=== PATIENT | female | born 1930 | race Caucasian/White ===

== ENCOUNTER 2016-10-19 08:16 | Inpatient (IN) | payer OTHER ==
--- NOTE | 2016-10-19 08:25 | EDPRACDOC ---
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 Mode Of Arrival: Ambulance Home Medications: Home Medications Acetaminophen [Mapap] 1,000 mg PO Q6H PRN 10/19/16 Acetaminophen [Tylenol] 650 mg PO Q6H PRN 10/19/16 Albuterol/Ipratropium Neb [Duoneb] 3 ml NEB Q6H PRN 10/19/16 Guaifenesin [Robitussin] 10 mg PO Q4H PRN 10/19/16 Lisinopril 5 mg PO DAILY 10/19/16 Loperamide HCl [Imodium A-D] 2 tab PO Q3H PRN 10/19/16 Lorazepam 0.25 mg PO .2XWEEK 10/19/16 Metoprolol Tartrate 12.5 mg PO BID 10/19/16 Polyethylene Glycol 3350 [Miralax] 17 gm PO Q48H 10/19/16 Quetiapine Fumarate [Seroquel] 25 mg PO QHS 10/19/16 Allergies/Adverse Reactions: Allergies Allergy/AdvReac Type Severity Reaction Status Date / Time No Known Allergies Allergy Verified 11/02/15 11:38 - History of Present 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 H/O DEMENTIA. FALL ABOUT 0300. AMS THIS AM. ED Past Medical History - History Reviewed Yes Nurses notes reviewed and agree except as marked - Patient Medical History Cardiac History: Reports: Hypertension GI/ History: Reports: Gastroesophageal Reflux Musculoskeletal History: Reports: Arthritis Psychological History: Reports: Anxiety Systemic History: Reports: Diabetes (Diet-controlled) Surgical History: Reports: Cholecystectomy - Family Medical History Reports: Diabetes (MOTHER) - Social Medical History Smoking Status: Never smoker EDM Review of Systems - Review of Systems ROS Unobtainable: Yes Review of systems cannot be obtained due to the patient's medical condition - Physical Exam Constitutional: Other (SOMNOLENT) Last recorded Vital Signs: Oxygen Pulse Oxygen Saturation O2 Device Oxygen Flow Rate Fraction of Inspired Oxygen ( FIO2) - HEENT Head: Normal Eye Exam: Normal Oropharynx: Normal Nose: No Symptoms Reported Neck: Normal - Respiratory/Cardiovascular Respiratory: Normal - CTA Cardiovascular: Normal - GI Tenderness: Non tender - Musculoskeletal Back: Normal Extremities: negative: Cyanosis, Edema - Integumentary Skin: Warm, Dry Lymphatics: Normal - Neurologic Memory Impaired: Unable to Test Motor Function: Unable to Test Cranial Nerve: Unable to Test Cerebellar: Unable to Test - Results 10/19/16 08:51 10/19/16 08:51 - EKG EKG #1 EKG Time: 08:33 -: Yes EKG interpreted by me Rate: bpm: 94 [place]: Normal Rhythm: NSR Block: None Hypertrophy: None ST: Normal Comments: NORMAL EKG Comparison: 10/25/07 - Departure Yes I personally saw and evaluated the patient. Disposition: Admit IP To This Hospital Condition: Stable Final Diagnosis: Acute metabolic encephalopathy, Hyperglycemia, Dehydration UTI (urinary tract infection) Qualifiers: Urinary tract infection type: acute cystitis Hematuria presence: with hematuria Qualified Code(s): N30.01 - Acute cystitis with hematuria Referrals: None,No Provider [Primary Care Provider] - One Week Prescriptions: No Action Loperamide HCl [Imodium A-D] 2 tab PO Q3H PRN PRN Reason: Diarrhea Albuterol/Ipratropium Neb [Duoneb] 3 ml NEB Q6H PRN PRN Reason: Shortness Of Breath Guaifenesin [Robitussin] 10 mg PO Q4H PRN PRN Reason: Cough Acetaminophen [Tylenol] 650 mg PO Q6H PRN PRN Reason: PAIN OR FEVER Quetiapine Fumarate [Seroquel] 25 mg PO QHS Polyethylene Glycol 3350 [Miralax] 17 gm PO Q48H Metoprolol Tartrate 12.5 mg PO BID Lorazepam 0.25 mg PO .2XWEEK Lisinopril 5 mg PO DAILY Acetaminophen [Mapap] 1,000 mg PO Q6H PRN PRN Reason: PAIN OR FEVER Decision to Admit Time: 09:44 Decision to admit date: 10/19/16 Decision to admit: from ED - Physician Consulted Hospitalist Time Called: :44 Provider Called: Hernesto Garcia Time Fiberglass Finisher Returned Call: 09:44
[2016-10-19 08:45] LABS: LEUKOCYTES/URINE TRACE (NEGATIVE); NITRITE/URINE NEG (NEGATIVE); URINE OCCULT BLOOD 1+ (NEG/TRACE); WBC/URINE TNTC (0-5)
[2016-10-19] MEDS ORDERED: REGULAR INSULIN 100 UNITS/ML - 3 ML VIAL SQ ONE (08:45)
[2016-10-19 08:59] LABS: AUTOMATED BASOPHIL 0.4 % (0-2); AUTOMATED EOSINOPHIL 0.3 % (0-5); AUTOMATED LYMPH 13.3 % (17-44); AUTOMATED MONOCYTE 4.7 % (3-10); AUTOMATED NEUTROPHIL 81.3 % (45-76); MPV 11.3 fL (7.4-10.4)
[2016-10-19 09:00] LABS: VENOUS BEb 2.6 (+/- 2); VENOUS TCO2 31.4 MMOL/L (23-27)
[2016-10-19 09:12] LABS: PARTIAL THROMB. TIME 24.9 SEC (22-35)
[2016-10-19 09:15] LABS: BLOOD UREA NITROGEN 49 MG/DL (7-17); CALCIUM 9.7 MG/DL (8.4-10.2); CALCULATED OSMOLALITY 331 MOs/Kg (270-290); CHLORIDE 114 mEq/L (98-107); SODIUM LEVEL 154 mEq/L (137-146); TOTAL PROTEIN 7.8 G/DL (6.3-8.2)
--- NOTE | 2016-10-19 09:15 | DIRPT ---
ADDENDUM REPORT: 10/19/2016 09:55 ADDENDUM: Due to some sort of error, head CT report was attached to this exam. This chest radiograph demonstrates no acute cardiopulmonary abnormality. No pneumothorax or pleural effusion is noted. Cardiomediastinal silhouette is within normal limits. Severe narrowing of left subacromial space is noted suggesting rotator cuff injury. Electronically Signed By: Flaco Purcell Jr, M.D. On: 10/19/2016 09:55 CLINICAL DATA: Altered mental status after fall. EXAM: CT HEAD WITHOUT CONTRAST TECHNIQUE: Contiguous axial images were obtained from the base of the skull through the vertex without intravenous contrast. COMPARISON: CT scan of November 02, 2015. FINDINGS: Bony calvarium appears intact. Fluid is noted in the mastoid air cells bilaterally. Mild diffuse cortical atrophy is noted. Mild chronic ischemic white matter disease is noted. 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 No mass effect or midline shift is noted. Ventricular size is within normal limits. There is no evidence of mass lesion, hemorrhage or acute infarction. IMPRESSION: Mild diffuse cortical atrophy. Mild chronic ischemic white matter disease. No acute intracranial abnormality seen. Electronically Signed: By: Flaco Purcell Jr, M.D. On: 10/19/2016 09:12
[2016-10-19 09:19] LABS: GLUCOSE 518 mg/dL (70-99)
[2016-10-19] MEDS ORDERED: NS 1,000 ML IV ONE ×2 (09:42→10:27)
[2016-10-19] MEDS ORDERED: CEFTRIAXONE 1 GM in D5W 100 ML IV ONE (09:43)
[2016-10-19] MEDS ORDERED: BENZONATATE 100 MG PERLES PO PRN (10:27)
[2016-10-19] MEDS ORDERED: ACETAMINOPHEN 650 MG SUPP PR PRN (10:27)
[2016-10-19] MEDS ORDERED: GLUCAGON 1 MG VIAL SQ PRN (10:27)
[2016-10-19] MEDS ORDERED: METOCLOPRAMIDE 10 MG/2 ML VIAL IV PRN (10:27)
[2016-10-19] MEDS ORDERED: DEXTROSE 25 GM/50 ML PFS IV PRN (10:27)
[2016-10-19] MEDS ORDERED: SODIUM CHLORIDE 0.9% 3 ML FLUSH FLUSH PRN (10:27)
[2016-10-19] MEDS ORDERED: ACETAMINOPHEN 325 MG/TAB TABLET PO PRN (10:27)
[2016-10-19] MEDS ORDERED: SIMETHICONE 80 MG TAB PO PRN (10:27)
[2016-10-19] MEDS ORDERED: GLUCOSE (ORAL GEL) 15 GM TUBE PO PRN (10:27)
[2016-10-19] MEDS ORDERED: DOCUSATE-SENNA CONCENTRATE TAB PO PRN (10:27)
[2016-10-19] MEDS ORDERED: TEMAZEPAM 15 MG CAP PO PRN (10:27)
[2016-10-19] MEDS ORDERED: Albuterol/Ipratropium Neb 3 ML NEB NEB PRN (10:32)
[2016-10-19] MEDS ORDERED: GUAIFENESIN 200 MG/10 ML UDC PO PRN (10:32)
--- NOTE | 2016-10-19 10:36 | HISTPHYS ---
- Chief Complaint INCREASED CONFUSION - History of Present Illness Patricia Rodriguez is an elderly, debilitated woman who resides at [facility], who fell on her way to the bathroom at 3:00 am today. She is less alert and responsive than usual, more confused. She has some baseline dementia, but is usually alert and able to converse. Her caretakers report that she was "not acting right" and seemed more confused and lethargic than usual. She was sent to the ED for evaluation. She is noted to have an acute kidney injury, dehydration and a urinary tract infection, and will be admitted for further evaluation and management. - Medical History Cardiac History: Reports: Hypertension Respiratory History: Reports: No Significant History GI/ History: Reports: Gastroesophageal Reflux Musculoskeletal History: Reports: Arthritis Systemic History: Reports: Diabetes (Diet-controlled) Neurological History: Reports: Dementia Psychological History: Reports: Anxiety - Surgical History Reports: Cholecystectomy - Medictions/Allergies Allergies No Known Allergies Allergy (Verified 11/02/15 11:38) Current Medication List: Reviewed Home Medications Acetaminophen [Mapap] 1,000 mg PO Q6H PRN 10/19/16 Acetaminophen [Tylenol] 650 mg PO Q6H PRN 10/19/16 Albuterol/Ipratropium Neb [Duoneb] 3 ml NEB Q6H PRN 10/19/16 Guaifenesin [Robitussin] 10 mg PO Q4H PRN 10/19/16 Lisinopril 5 mg PO DAILY 10/19/16 Loperamide HCl [Imodium A-D] 2 tab PO Q3H PRN 10/19/16 Lorazepam 0.25 mg PO .2XWEEK 10/19/16 Metoprolol Tartrate 12.5 mg PO BID 10/19/16 Polyethylene Glycol 3350 [Miralax] 17 gm PO Q48H 10/19/16 Quetiapine Fumarate [Seroquel] 25 mg PO QHS 10/19/16 - Family History Reports: Diabetes (MOTHER) - Social History Travel Outside of [place] in the Last 3 Months?: No Lives: in Assisted Living Smoking Status: Never smoker Social History: Denies: Alcohol Use, Substance Use Disorder - Review of Systems Yes Review of systems cannot be obtained due to the patient's medical condition (acute illness, patient is non-responsive/non-communicative at this time) - Physical Exam Vital Signs: Initial Vitals Temperature 98.9 F 10/19/16 08:26 Pulse Rate 95 10/19/16 08:26 Respiratory Rate 18 10/19/16 08:26 Blood Pressure 175/73 10/19/16 08:26 Pulse Oxygen Saturation 94 10/19/16 08:26 Constitutional: Alert, Confused, Distress, Other (frail elderly white female, awake but will not converse, slightly resistant to exam, but not combative) - HEENT Head: Normal Eye: Normal (PERRL:EOMI) Oropharynx: Membranes Dry. negative: Drooling, Exudate, Red Tympanic Membrane: Dull ENT EAC: Cerumen Nose: negative: Bleeding, Congestion, Discharge Respiratory: Normal - CTA, Diminished Cardiovascular: Normal (regular rhythm and rate, no murmur) - GI Auscultation: Normal Palpation: Normal (soft, nontender, nondistended, no mass, no scar,). negative : Enlarged liver, Enlarged spleen, Fluid Wave, Mass Tenderness: Non tender Antonio's Sign: Negative Rectal Exam: Deferred - Musculoskeletal Back: Normal Extremities: Pedal Pulse (normal), Radial Pulse (normal), Other (degenerative joint disease). negative: Calf Tenderness, Clubbing, Cyanosis, Edema Spine: non-tender, normal alignment, normal inspection - Integumentary Skin: Warm, Dry Lymphatics: Normal - Neurologic Memory Impaired: Unable to Test Motor Function: Unable to Test Cranial Nerve: Unable to Test Cerebellar: Unable to Test Mood Description: Uncooperative Thought: Other (non-communicative) - Focused CV Perfusion Exam Vital Signs: Last Vital Signs Temp 98.9 F 10/19/16 08:26 Pulse 94 10/19/16 10:00 Resp 18 10/19/16 10:00 BP 171/77 10/19/16 10:00 Pulse Ox 94 10/19/16 10:00 - Lab Results Laboratory Tests 10/19/16 10/19/16 10/19/16 08:31 08:31 08:51 WBC Hgb Hct Plt Count Neut % (Auto) Lymph % (Auto) Young % (Auto) PT INR APTT VBG pH Mixed VBG pCO2 Mixed VBG pO2 Mixed VBG HCO3 Mixed VBG Total CO2 Mixed VBG Base Excess Sodium 154 H Potassium 4.4 Chloride 114 H Carbon Dioxide 27 BUN 49 H Creatinine 1.20 H Estimated GFR (MDRD) 43 L Glucose 518 H* POC Capillary Glucose 451 H Hemoglobin A1c Calculated Osmolality 331 H Calcium 9.7 Total Bilirubin 0.7 AST 16 ALT 23 Alkaline Phosphatase 140 Troponin I < 0.01 [id number] Pept 397 Total Protein 7.8 Albumin 4.0 Urine Color Yellow Urine Clarity Cldy Urine pH 5.0 Ur Specific [place] 1.015 Urine Protein 1+ H Urine Glucose (UA) 2+ H Urine Ketones Neg Urine Occult Blood 1+ H Urine Nitrite Neg Urine Bilirubin Neg Urine Urobilinogen <2.0 Urine RBC 10-20 H Urine WBC Tntc H Urine WBC Clumps Present H Urine Bacteria 1+ H 10/19/16 10/19/16 10/19/16 08:51 08:51 08:51 WBC 10.1 Hgb 14.7 Hct 45.6 Plt Count 156 Neut % (Auto) 81.3 H Lymph % (Auto) 13.3 L Young % (Auto) 4.7 PT 10.7 INR 1.0 APTT 24.9 VBG pH 7.34 Mixed VBG pCO2 55.0 Mixed VBG pO2 < 31.0 Mixed VBG HCO3 29.7 H Mixed VBG Total CO2 31.4 H Mixed VBG Base Excess 2.6 H Sodium Potassium Chloride Carbon Dioxide BUN Creatinine Estimated GFR (MDRD) Glucose POC Capillary Glucose Hemoglobin A1c Calculated Osmolality Calcium Total Bilirubin AST ALT Alkaline Phosphatase Troponin I [id number]-Lrwdvypcnin Pept Total Protein Albumin Urine Color Urine Clarity Urine pH Ur Specific [place] Urine Protein Urine Glucose (UA) Urine Ketones Urine Occult Blood Urine Nitrite Urine Bilirubin Urine Urobilinogen Urine RBC Urine WBC Urine WBC Clumps Urine Bacteria 10/19/16 10/19/16 08:51 11:54 WBC Hgb Hct Plt Count Neut % (Auto) Lymph % (Auto) Young % (Auto) PT INR APTT VBG pH Mixed VBG pCO2 Mixed VBG pO2 Mixed VBG HCO3 Mixed VBG Total CO2 Mixed VBG Base Excess Sodium Potassium Chloride Carbon Dioxide BUN Creatinine Estimated GFR (MDRD) Glucose POC Capillary Glucose Hemoglobin A1c > 14.0 H Calculated Osmolality Calcium Total Bilirubin AST ALT Alkaline Phosphatase Troponin I < 0.01 Wol-N-Sijyvnibpyw Pept Total Protein Albumin Urine Color Urine Clarity Urine pH Ur Specific [place] Urine Protein Urine Glucose (UA) Urine Ketones Urine Occult Blood Urine Nitrite Urine Bilirubin Urine Urobilinogen Urine RBC Urine WBC Urine WBC Clumps Urine Bacteria - Diagnostic Findings CXR: ADDENDUM: Due to some sort of error, head CT report was attached to this exam. This chest radiograph demonstrates no acute cardiopulmonary abnormality. No pneumothorax or pleural effusion is noted. Cardiomediastinal silhouette is within normal limits. Severe narrowing of left subacromial space is noted suggesting rotator cuff injury. Electronically Signed By: Flaco Purcell Jr, M.D. On: 10/19/2016 09:55 CT Head: IMPRESSION: Mild diffuse cortical atrophy. Mild chronic ischemic white matter disease. No acute intracranial abnormality seen. Electronically Signed: By: Flaco Purcell Jr, M.D. On: 10/19/2016 09:12 - Assessment (1) Acute kidney injury N17.9 - ACUTE KIDNEY FAILURE, UNSPECIFIED Acute Present on Admission: Yes Admit, obtain cultures of blood and urine, begin IV antibiotics and aggressive hydration with IV fluids. Patient received 2L of IV fluid in ED, will give 1 more liter bolus, then continue at 125 mL/hr. Follow renal function daily and avoid nephrotoxic medications. (2) Hypernatremia E87.0 - HYPEROSMOLALITY AND HYPERNATREMIA Acute Present on Admission: Yes Hydrate patient initially with isotonic saline, then recheck, and consider more dilute solution if hypernatremia persists (3) Acute metabolic encephalopathy G93.41 - METABOLIC ENCEPHALOPATHY Acute Present on Admission: Yes Patient very confused and withdrawn, likely due to acute illness. Will treat underlying illness and follow clinical course. CT of head shows no acute CVA or injury. (4) DM complication NOS type II, uncontrolled E11.8 - TYPE 2 DIABETES MELLITUS WITH UNSPECIFIED COMPLICATIONS; E11.65 - TYPE 2 DIABETES MELLITUS WITH HYPERGLYCEMIA Acute Present on Admission: Yes Qualifiers: Diabetes mellitus fdc insulin use: without intermission coordinator use Qualified Code(s): E11.8 - Type 2 diabetes mellitus with unspecified complications; E11.65 - Type 2 diabetes mellitus with hyperglycemia Begin Lantus 14 units SC q HS, follow CBG QID + PRN and use moderate dose SSI (5) UTI (urinary tract infection) N39.0 - URINARY TRACT INFECTION, SITE NOT SPECIFIED Acute Present on Admission: Yes Qualifiers: Urinary tract infection type: acute cystitis Hematuria presence: with hematuria Qualified Code(s): N30.01 - Acute cystitis with hematuria Culture urine, begin IV Rocephin (6) Dehydration E86.0 - DEHYDRATION Acute Present on Admission: Yes Severe, needs aggressive rehydration, initially with isotonic saline, then recheck, and consider more dilute solution if hypernatremia persists (7) Hyperglycemia R73.9 - HYPERGLYCEMIA, UNSPECIFIED Acute Present on Admission: Yes Due to acute illness and uncontrolled diabetes. Monitor blood sugars prior to each meal and at HS, use sliding scale insulin and small amount of Lantus. (8) Diastolic CHF I50.30 - UNSPECIFIED DIASTOLIC (CONGESTIVE) HEART FAILURE Chronic Present on Admission: Yes Qualifiers: Congestive heart failure chronicity: chronic Qualified Code(s): I50.32 - Chronic diastolic (congestive) heart failure Diastolic dysfunction noted on echocardiogram with normal ejection fraction (9) Hypertension I10 - ESSENTIAL (PRIMARY) HYPERTENSION Chronic Present on Admission: Yes Qualifiers: Hypertension type: essential hypertension Qualified Code(s): I10 - Essential (primary) hypertension Monitor BP closely. Continue home medications, except hold BOBBY/ARB and diuretics. May need to add other meds or titrate doses up. - Plan Due to the presence of and/or the risk of deterioration, my attendance to this patient required critical care time, including assessment/reassessment, documentation, ordering and interpreting ancillary studies, discussion with staff and consultants,patient and family, and excludes time spent on separately billable procedures. In summary, this patient is acutely and critically ill. The patient requires treatment of vital organ failure and measures to prevent further life-threatening deterioration of condition. She has requested to be a DNR and has a pre-existing form on her chart, which will be honored. Case Care Discussed with: Nursing Staff Total Time: 65 min Critical Care: Yes Couseling Time (>50% in counseling/coordination): No Code: 291
[2016-10-19] MEDS: NS 1,000 ML IV ONE ×2 (11:08→12:05)
[2016-10-19] MEDS ORDERED: hydrALAZINE 20 MG/ML VIAL IV ONE (11:38)
[2016-10-19] MEDS: METOPROLOL TARTRATE 25 MG TAB PO SCH (11:59)
[2016-10-19] MEDS: NS 1,000 ML IV SCH ×2 (12:07→16:06)
[2016-10-19] MEDS: REGULAR INSULIN 100 UNITS/ML - 3 ML VIAL SQ SCH ×3 (13:23→20:51)
[2016-10-19 15:29] LABS: BLOOD UREA NITROGEN 39 MG/DL (7-17); CALCIUM 8.6 MG/DL (8.4-10.2); CALCULATED OSMOLALITY 309 MOs/Kg (270-290); CHLORIDE 121 mEq/L (98-107); GLUCOSE 112 mg/dL (70-99); SODIUM LEVEL 156 mEq/L (137-146)
[2016-10-19] MEDS ORDERED: CHAPSTICK LIP BALM ONE (15:59)
[2016-10-19] MEDS ORDERED: GLARGINE INSULIN (LANTUS) 100 UNITS/ML PEN SQ SCH ×3 (16:00→21:00)
[2016-10-19] MEDS ORDERED: Vaccine Screening Complete SCH (16:00)
[2016-10-19] MEDS: ENOXAPARIN 30 MG/0.3 ML PFS SQ SCH (17:50)
[2016-10-19] MEDS: SODIUM CHLORIDE 0.9% 3 ML FLUSH FLUSH SCH (17:54)
[2016-10-19] MEDS: QUETIAPINE FUMARATE 25 MG TAB PO SCH (20:08)
[2016-10-19] MEDS ORDERED: METOPROLOL TARTRATE 25 MG TAB PO SCH (21:00)
[2016-10-20] MEDS: NS 1,000 ML IV SCH ×2 (01:13→11:00)
[2016-10-20] MEDS: SODIUM CHLORIDE 0.9% 3 ML FLUSH FLUSH SCH ×2 (06:24→18:44)
[2016-10-20] MEDS: REGULAR INSULIN 100 UNITS/ML - 3 ML VIAL SQ SCH ×4 (06:24→21:27)
[2016-10-20 07:17] LABS: AUTOMATED BASOPHIL 0.4 % (0-2); AUTOMATED EOSINOPHIL 1.3 % (0-5); AUTOMATED LYMPH 23.5 % (17-44); AUTOMATED MONOCYTE 6.6 % (3-10); AUTOMATED NEUTROPHIL 68.2 % (45-76); MPV 11.7 fL (7.4-10.4)
[2016-10-20 07:39] LABS: BLOOD UREA NITROGEN 29 MG/DL (7-17); CALCIUM 8.1 MG/DL (8.4-10.2); CALCULATED OSMOLALITY 303 MOs/Kg (270-290); CHLORIDE 123 mEq/L (98-107); GLUCOSE 101 mg/dL (70-99); SODIUM LEVEL 155 mEq/L (137-146)
[2016-10-20] MEDS ORDERED: PNEUMOCOCCAL 0.5 ML VIAL IM ONE (08:00)
[2016-10-20] MEDS ORDERED: LISINOPRIL 5 MG TAB PO SCH (09:00)
[2016-10-20] MEDS: METOPROLOL TARTRATE 25 MG TAB PO SCH ×2 (09:29→21:28)
[2016-10-20] MEDS: PEG-ELECTROLYTE 17 GM PACK PO SCH (09:38)
[2016-10-20] MEDS ORDERED: CEFTRIAXONE 1 GM in D5W 100 ML IV SCH (10:00)
[2016-10-20] MEDS: 1/2NS 1,000 ML IV SCH ×2 (11:47→23:02)
--- NOTE | 2016-10-20 14:50 | GENMEDPROG ---
Subjective Note: confused and agitated. Pulling at all lines and monitors. Son at bedside attempting redirection. patient now speaking words but they are not making any sense. Notes Reviewed: Yes: Events from last night noted and discussed with Clinical Staff Current Medication List: Reviewed Currently: Reports: Other (pt unable to give any history). Denies: Nausea and Vomiting, Abdominal Pain DVT Prophylaxis: Yes - Physical Examination Vital Signs and I&O: Last Vital Signs Temp 99.2 F 10/20/16 14:10 Pulse 87 10/20/16 14:10 Resp 20 10/20/16 14:10 BP 128/50 L 10/20/16 14:10 Pulse Ox 95 10/20/16 14:10 Oxygen Pulse Oxygen Saturation 95 O2 Device Room Air Oxygen Flow Rate Fraction of Inspired Oxygen ( FIO2) Intake & Output 10/17/16 10/18/16 10/19/16 10/20/16 23:59 23:59 23:59 23:59 Intake Total 3374 988 Balance 3374 988 Patient's weight 47.491 kg 47.945 kg General: Alert. negative: Oriented x3, Cooperative, Well appearing, Well nourished, Other (agitated) HEENT: Normal (Normocephalic, atraumatic;EOMI.Sclera white, Nares patent, without discharge or bleeding. No oropharyngeal lesions or erythema. Mucous membranes are dry.) Neck: Non-tender, Full range of motion, Normal Trachea alignment, Normal inspection (No cervical lymphadenopathy. No supraclavicular lymphadenopathy.), No Masses palpable, Supple Lymphatics: Normal Respiratory: Normal - CTA, Diminished Cardiovascular: Regular rate and rhythm (No bradycardia or tachycardia), Normal S1, No Gallops,Rubs/Murmurs, Normal S2, Good Pedal Pulses (DP pulses 2+ bilaterally) GI: Normal bowel sounds (normal active sounds), Soft (non-distended), Non tender , No hepatospenomegaly, No masses Extremities/Musculoskeletal: Normal pulses Skin: Warm,Dry and Intact, No rashes, No significant lesion Psych/Mental Status: Agitated, Confused Lab/DI/Studies Reviewed: Abnormal Lab Results 10/19/16 10/19/16 10/19/16 14:35 16:18 16:19 RBC Hgb MCHC Plt Count MPV Sodium 156 H Potassium 3.3 L Chloride 121 H BUN 39 H Estimated GFR (MDRD) 53 L Glucose 112 H POC Capillary Glucose 47 L* 48 L* Calculated Osmolality 309 H Calcium 10/19/16 10/19/16 10/19/16 16:35 17:00 20:39 RBC Hgb MCHC Plt Count MPV Sodium Potassium Chloride BUN Estimated GFR (MDRD) Glucose 50 L POC Capillary Glucose 65 L 272 H Calculated Osmolality Calcium 10/20/16 10/20/16 10/20/16 06:11 06:11 10:48 RBC 4.04 L Hgb 11.5 L D MCHC 32.0 L Plt Count 127 L MPV 11.7 H Sodium 155 H Potassium Chloride 123 H BUN 29 H Estimated GFR (MDRD) Glucose 101 H POC Capillary Glucose 251 H Calculated Osmolality 303 H Calcium 8.1 L - Assessment (1) Hypernatremia Acute E87.0 - HYPEROSMOLALITY AND HYPERNATREMIA Comment/Plan: Hypernatremia is persistent. Will change solution to half-normal saline. (2) Acute metabolic encephalopathy Acute G93.41 - METABOLIC ENCEPHALOPATHY Comment/Plan: Patient beginning to wake up some she is saying words but they do not make any sense. Continue to treat underlying cause. (3) Diastolic CHF Chronic I50.30 - UNSPECIFIED DIASTOLIC (CONGESTIVE) HEART FAILURE Qualifiers: Congestive heart failure chronicity: chronic Qualified Code(s): I50.32 - Chronic diastolic (congestive) heart failure Comment/Plan: Diastolic dysfunction noted on echocardiogram with normal ejection fraction (4) Dehydration Acute E86.0 - DEHYDRATION Comment/Plan: Continue rehydration gently with half-normal saline at 100 milliliters/hour (5) Hyperglycemia Acute R73.9 - HYPERGLYCEMIA, UNSPECIFIED Comment/Plan: Glucoses improving slightly with hydration. Patient did have several low blood glucoses after receiving higher doses of insulin. Will cut back to low-dose sliding-scale coverage. (6) DM complication NOS type II, uncontrolled Acute E11.8 - TYPE 2 DIABETES MELLITUS WITH UNSPECIFIED COMPLICATIONS; E11.65 - TYPE 2 DIABETES MELLITUS WITH HYPERGLYCEMIA Qualifiers: Diabetes mellitus rat exterminator insulin use: without rat exterminator use Qualified Code(s): E11.8 - Type 2 diabetes mellitus with unspecified complications; E11.65 - Type 2 diabetes mellitus with hyperglycemia Comment/Plan: Discontinue Lantus 14 units at HS continue capillary blood glucoses Q twice daily and cover with low-dose sliding scale insulin. (7) Hypertension Chronic I10 - ESSENTIAL (PRIMARY) HYPERTENSION Qualifiers: Hypertension type: essential hypertension Qualified Code(s): I10 - Essential (primary) hypertension Comment/Plan: Monitor BP closely. Continue home medications, except hold BOBBY/ ARB and diuretics. May need to add other meds or titrate doses up. (8) Acute kidney injury Resolved N17.9 - ACUTE KIDNEY FAILURE, UNSPECIFIED Comment/Plan: Renal function back to normal. (9) UTI (urinary tract infection) Ruled-out N39.0 - URINARY TRACT INFECTION, SITE NOT SPECIFIED Qualifiers: Urinary tract infection type: acute cystitis Hematuria presence: with hematuria Qualified Code(s): N30.01 - Acute cystitis with hematuria Comment/Plan: Urine culture negative. Continue to monitor closely. - Plan Continue supportive care and treat underlying hypernatremia. Disposition Plan: [facility]. Case Care Discussed with: Patient, Family, Nursing Staff, Physical Therapy, Resource Management, Warrant Clerk Education/Counseling Given To: Patient, Family Member Education/Counseling Given Regarding: Diagnosis, Treatment, Prognosis, Disposition Plan Total Time: 45 minutes. Critical Care: No Couseling Time (>50% in counseling/coordination): No
[2016-10-20] MEDS: ENOXAPARIN 30 MG/0.3 ML PFS SQ SCH (18:44)
[2016-10-20] MEDS: QUETIAPINE FUMARATE 25 MG TAB PO SCH (21:28)
[2016-10-21] MEDS: SODIUM CHLORIDE 0.9% 3 ML FLUSH FLUSH SCH ×2 (04:52→16:58)
[2016-10-21] MEDS: REGULAR INSULIN 100 UNITS/ML - 3 ML VIAL SQ SCH ×4 (06:22→21:54)
[2016-10-21 08:07] LABS: AUTOMATED BASOPHIL 0.4 % (0-2); AUTOMATED EOSINOPHIL 1.3 % (0-5); AUTOMATED LYMPH 31.7 % (17-44); AUTOMATED MONOCYTE 6.1 % (3-10); AUTOMATED NEUTROPHIL 60.5 % (45-76); MPV 11.9 fL (7.4-10.4)
[2016-10-21 08:17] LABS: BLOOD UREA NITROGEN 19 MG/DL (7-17); CALCIUM 7.3 MG/DL (8.4-10.2); CALCULATED OSMOLALITY 279 MOs/Kg (270-290); CHLORIDE 114 mEq/L (98-107); GLUCOSE 135 mg/dL (70-99); SODIUM LEVEL 143 mEq/L (137-146)
[2016-10-21 09:08] LABS: ABG Draw Site Left Radial; ALLEN'S TEST PASS; BEb -2.9 (+/- 2); TCO2 21.9 MMOL/L (23-27)
--- NOTE | 2016-10-21 09:42 | DIRPT ---
CLINICAL DATA: 86-year-old who presented to the emergency department 2 days ago with acute mental status changes after a fall. Acute onset of shortness of breath and hypoxia. EXAM: PORTABLE CHEST 1 VIEW COMPARISON: 10/19/2016, 10/23/2015. FINDINGS: Suboptimal inspiration accounts for crowded bronchovascular markings diffusely and atelectasis in the bases, and accentuates the cardiac silhouette. Taking this into account, cardiac silhouette normal in size. Thoracic aorta atherosclerotic. Hilar and mediastinal contours otherwise unremarkable. Biapical pleuroparenchymal scarring with calcification, unchanged. Developing mild pulmonary venous hypertension, new since the examination 2 days ago, without overt edema. Lungs otherwise clear. No confluent airspace consolidation. No visible pleural effusions. Severe degenerative changes involving both shoulder joints as noted previously. IMPRESSION: 1. Suboptimal inspiration accounts for mild bibasilar atelectasis. 2. Developing pulmonary venous hypertension without overt edema currently. Query incipient fluid overload. 3. No acute cardiopulmonary disease otherwise. Electronically Signed By: Levi Bell M.D. On: 10/21/2016 09:39
[2016-10-21] MEDS: METOPROLOL TARTRATE 25 MG TAB PO SCH ×3 (11:00→21:56)
[2016-10-21] MEDS: 1/2NS 1,000 ML IV SCH ×2 (11:04→15:14)
[2016-10-21] MEDS: PIPERACILLIN AND TAZOBACTAM 3.375 GM in D5W 100 ML IV SCH ×3 (11:04→21:56)
[2016-10-21 12:19] LABS: LEUKOCYTES/URINE 2+ (NEGATIVE); NITRITE/URINE NEG (NEGATIVE); URINE OCCULT BLOOD 1+ (NEG/TRACE); WBC/URINE TNTC (0-5)
[2016-10-21] MEDS ORDERED: FUROSEMIDE 40 MG/4 ML VIAL IV ONE (13:20)
--- NOTE | 2016-10-21 16:07 | GENMEDPROG ---
Subjective Note: Patient had fever at approximately 5:00 a.m. this morning was followed by an episode of hypoxemia at approximately 7:30 a.m. this morning. Patient developed wheezing was having difficulty oxygenating she received nebulizer treatment in that improved. Notes Reviewed: Yes: Events from last night noted and discussed with Clinical Staff Current Medication List: Reviewed Currently: Reports: Wheezing, SOB, Other (pt unable to give any history). Denies: Nausea and Vomiting, Abdominal Pain DVT Prophylaxis: Yes - Physical Examination Vital Signs and I&O: Last Vital Signs Temp 97.0 F L 10/21/16 13:27 Pulse 90 10/21/16 13:27 Resp 18 10/21/16 13:27 BP 119/72 10/21/16 13:27 Pulse Ox 92 10/21/16 13:27 Oxygen Pulse Oxygen Saturation 92 O2 Device Room Air Oxygen Flow Rate Fraction of Inspired Oxygen ( FIO2) Intake & Output 10/18/16 10/19/16 10/20/16 10/21/16 23:59 23:59 23:59 23:59 Intake Total 3374 2430 1852 Balance 3374 2430 1852 Patient's weight 47.491 kg 47.945 kg 48.897 kg General: Alert. negative: Oriented x3, Cooperative, Well appearing, Well nourished, Other (agitated) HEENT: Normal (Normocephalic, atraumatic;EOMI.Sclera white, Nares patent, without discharge or bleeding. No oropharyngeal lesions or erythema. Mucous membranes are dry.) Neck: Non-tender, Full range of motion, Normal Trachea alignment, Normal inspection (No cervical lymphadenopathy. No supraclavicular lymphadenopathy.), No Masses palpable, Supple Lymphatics: Normal Respiratory: Normal - CTA, Diminished Cardiovascular: Regular rate and rhythm (No bradycardia or tachycardia), Normal S1, No Gallops,Rubs/Murmurs, Normal S2, Good Pedal Pulses (DP pulses 2+ bilaterally) GI: Normal bowel sounds (normal active sounds), Soft (non-distended), Non tender , No hepatospenomegaly, No masses Extremities/Musculoskeletal: Normal pulses, Edema Skin: Warm,Dry and Intact, No rashes, No significant lesion Neurological: Strength at 5/5 X4 ext (Motor 5/5 throughout.), Normal tone, Cranial nerves 3-12 NL ( 2-12 grossly intact.) Psych/Mental Status: Agitated, Confused Lab/DI/Studies Reviewed: EXAM: PORTABLE CHEST 1 VIEW COMPARISON: 10/19/2016, 10/23/2015. FINDINGS: Suboptimal inspiration accounts for crowded bronchovascular markings diffusely and atelectasis in the bases, and accentuates the cardiac silhouette. Taking this into account, cardiac silhouette normal in size. Thoracic aorta atherosclerotic. Hilar and mediastinal contours otherwise unremarkable. Biapical pleuroparenchymal scarring with calcification, unchanged. Developing mild pulmonary venous hypertension, new since the examination 2 days ago, without overt edema. Lungs otherwise clear. No confluent airspace consolidation. No visible pleural effusions. Severe degenerative changes involving both shoulder joints as noted previously. IMPRESSION: 1. Suboptimal inspiration accounts for mild bibasilar atelectasis. 2. Developing pulmonary venous hypertension without overt edema currently. Query incipient fluid overload. 3. No acute cardiopulmonary disease otherwise. Electronically Signed By: Levi Bell M.D. On: 10/21/2016 09:39 Abnormal Lab Results 10/20/16 10/20/16 10/21/16 16:08 21:18 05:42 RBC Hgb Hct MCHC Plt Count MPV pCO2 pO2 HCO3 Total CO2 Base Excess Potassium Chloride BUN Glucose POC Capillary Glucose 102 H 175 H 139 H Calcium Magnesium Urine Protein Urine Ketones Urine Occult Blood Ur Leukocyte Esterase Urine RBC Urine WBC Urine WBC Clumps Urine Yeast 10/21/16 10/21/16 10/21/16 06:54 06:54 09:03 RBC 3.97 L Hgb 11.4 L Hct 34.9 L MCHC 32.5 L Plt Count 99 L MPV 11.9 H pCO2 33.0 L pO2 62.0 L HCO3 20.9 L Total CO2 21.9 L Base Excess -2.9 L Potassium 3.4 L Chloride 114 H BUN 19 H Glucose 135 H POC Capillary Glucose Calcium 7.3 L Magnesium 1.40 L Urine Protein Urine Ketones Urine Occult Blood Ur Leukocyte Esterase Urine RBC Urine WBC Urine WBC Clumps Urine Yeast 10/21/16 10/21/16 11:36 12:00 RBC Hgb Hct MCHC Plt Count MPV pCO2 pO2 HCO3 Total CO2 Base Excess Potassium Chloride BUN Glucose POC Capillary Glucose 172 H Calcium Magnesium Urine Protein 1+ H Urine Ketones 1+ H Urine Occult Blood 1+ H Ur Leukocyte Esterase 2+ H Urine RBC 5-10 H Urine WBC Tntc H Urine WBC Clumps Present H Urine Yeast Mod H - Assessment (1) Hypernatremia Acute E87.0 - HYPEROSMOLALITY AND HYPERNATREMIA Comment/Plan: Sodium down to 143 with change in IV fluids to half-normal saline. (2) Acute metabolic encephalopathy Acute G93.41 - METABOLIC ENCEPHALOPATHY Comment/Plan: Patient remains somewhat confused today will continue to monitor. (3) Diastolic CHF Chronic I50.30 - UNSPECIFIED DIASTOLIC (CONGESTIVE) HEART FAILURE Qualifiers: Congestive heart failure chronicity: chronic Qualified Code(s): I50.32 - Chronic diastolic (congestive) heart failure Comment/Plan: Diastolic dysfunction noted on echocardiogram with normal ejection fraction (4) Dehydration Acute E86.0 - DEHYDRATION Comment/Plan: Continue rehydration gently with half-normal saline at 100 milliliters/hour (5) Hyperglycemia Acute R73.9 - HYPERGLYCEMIA, UNSPECIFIED Comment/Plan: Glucoses improving slightly with hydration. Patient did have several low blood glucoses after receiving higher doses of insulin. Will cut back to low-dose sliding-scale coverage. (6) DM complication NOS type II, uncontrolled Acute E11.8 - TYPE 2 DIABETES MELLITUS WITH UNSPECIFIED COMPLICATIONS; E11.65 - TYPE 2 DIABETES MELLITUS WITH HYPERGLYCEMIA Qualifiers: Diabetes mellitus watermelon harvesting supervisor insulin use: without watermelon harvesting supervisor use Qualified Code(s): E11.8 - Type 2 diabetes mellitus with unspecified complications; E11.65 - Type 2 diabetes mellitus with hyperglycemia Comment/Plan: Glucoses well controlled and below 200. (7) Hypertension Chronic I10 - ESSENTIAL (PRIMARY) HYPERTENSION Qualifiers: Hypertension type: essential hypertension Qualified Code(s): I10 - Essential (primary) hypertension Comment/Plan: Monitor BP closely. Continue home medications, except hold BOBBY/ ARB and diuretics. May need to add other meds or titrate doses up. (8) Acute kidney injury Resolved N17.9 - ACUTE KIDNEY FAILURE, UNSPECIFIED Comment/Plan: Renal function back to normal. (9) UTI (urinary tract infection) Ruled-out N39.0 - URINARY TRACT INFECTION, SITE NOT SPECIFIED Qualifiers: Urinary tract infection type: acute cystitis Hematuria presence: with hematuria Qualified Code(s): N30.01 - Acute cystitis with hematuria Comment/Plan: Urine culture negative. Continue to monitor closely. In today's events a new culture has been sent peer - Plan Continue supportive care and treat underlying hypernatremia. Disposition Plan: [facility]. Case Care Discussed with: Nursing Staff Total Time: 45 minutes Critical Care: No Couseling Time (>50% in counseling/coordination): No
[2016-10-21] MEDS: ENOXAPARIN 30 MG/0.3 ML PFS SQ SCH (16:59)
[2016-10-21] MEDS: ONDANSETRON HCL 4 MG/2 ML VIAL IV PRN (19:10)
[2016-10-21] MEDS: METOCLOPRAMIDE 10 MG/2 ML VIAL IV PRN (21:52)
[2016-10-21] MEDS: QUETIAPINE FUMARATE 25 MG TAB PO SCH (21:56)
--- NOTE | 2016-10-21 22:37 | DIRPT ---
CLINICAL DATA: 86-year-old female with vomiting EXAM: DG ABDOMEN ACUTE W/ 1V CHEST COMPARISON: Radiograph dated 11/04/2015 FINDINGS: There is no evidence of bowel obstruction. No free air. There is scoliosis with degenerative changes of the spine. No acute fracture. The thoracic aorta is tortuous. There is atherosclerotic calcification of the aorta. Left lung base atelectatic changes/scarring noted. The lungs are otherwise clear. No significant pleural effusion. No pneumothorax. Right apical calcified pleural plaques. The cardiac silhouette is within normal limits. IMPRESSION: No evidence of bowel obstruction. Left lung base atelectatic changes/ scarring. No focal consolidation. Electronically Signed By: Gera Parnell M.D. On: 10/21/2016 22:34
[2016-10-22] MEDS: Albuterol/Ipratropium Neb 3 ML NEB NEB SCH ×4 (03:10→20:21)
[2016-10-22] MEDS: SODIUM CHLORIDE 0.9% 3 ML FLUSH FLUSH SCH ×2 (03:43→17:31)
[2016-10-22] MEDS: METOCLOPRAMIDE 10 MG/2 ML VIAL IV PRN ×2 (03:43→17:27)
[2016-10-22] MEDS: PIPERACILLIN AND TAZOBACTAM 3.375 GM in D5W 100 ML IV SCH ×4 (03:43→21:33)
[2016-10-22 04:47] VITALS: BMI 22.1
[2016-10-22] MEDS: REGULAR INSULIN 100 UNITS/ML - 3 ML VIAL SQ SCH ×4 (06:23→20:51)
[2016-10-22 07:11] LABS: AUTOMATED LYMPH 9.5 % (17-44); AUTOMATED MONOCYTE 5.3 % (3-10); AUTOMATED NEUTROPHIL 85.2 % (45-76); MPV 12.6 fL (7.4-10.4)
[2016-10-22 07:23] LABS: BLOOD UREA NITROGEN 26 MG/DL (7-17); CALCIUM 7.3 MG/DL (8.4-10.2); CALCULATED OSMOLALITY 277 MOs/Kg (270-290); CHLORIDE 102 mEq/L (98-107); GLUCOSE 271 mg/dL (70-99); SODIUM LEVEL 136 mEq/L (137-146)
[2016-10-22] MEDS ORDERED: KCL 20 mEq/100 ml Premix Run 20 MEQ/100 ML RTU IV ONE (08:00)
[2016-10-22] MEDS: 1/2NS 1,000 ML IV SCH ×2 (09:36→13:20)
[2016-10-22] MEDS: PEG-ELECTROLYTE 17 GM PACK PO SCH (09:38)
[2016-10-22] MEDS: MAGNESIUM OXIDE 400 MG TAB PO SCH ×3 (09:39→17:31)
[2016-10-22] MEDS: POTASSIUM CHLORIDE 20 MEQ TAB PO SCH ×3 (09:39→17:31)
[2016-10-22] MEDS: METOPROLOL TARTRATE 25 MG TAB PO SCH ×2 (09:41→20:27)
[2016-10-22] MEDS: Magnesium Sulfate 2 gm/D5W 2 GM/50 ML RTU IV SCH ×2 (13:35→17:28)
--- NOTE | 2016-10-22 17:28 | GENMEDPROG ---
Subjective Note: Patient minimally interactive today. She lives in the Alzheimer's unit at the assisted living facility. Notes Reviewed: Yes: Events from last night noted and discussed with Clinical Staff Current Medication List: Reviewed Currently: Reports: Wheezing, SOB, Other (pt unable to give any history). Denies: Nausea and Vomiting, Abdominal Pain DVT Prophylaxis: Yes - Physical Examination Vital Signs and I&O: Last Vital Signs Temp 98.1 F 10/22/16 13:55 Pulse 76 10/22/16 13:55 Resp 18 10/22/16 13:55 BP 116/54 L 10/22/16 13:55 Pulse Ox 93 10/22/16 13:55 Oxygen Pulse Oxygen Saturation 93 O2 Device Room Air Oxygen Flow Rate 3 Fraction of Inspired Oxygen ( FIO2) Intake & Output 10/19/16 10/20/16 10/21/16 10/22/16 23:59 23:59 23:59 23:59 Intake Total 3374 2430 2729 1351 Balance 3374 2430 2729 1351 Patient's weight 47.491 kg 47.945 kg 48.897 kg 49.623 kg General: Alert. negative: Oriented x3, Cooperative, Well appearing, Well nourished, Other (agitated) HEENT: Normal (Normocephalic, atraumatic;EOMI.Sclera white, Nares patent, without discharge or bleeding. No oropharyngeal lesions or erythema. Mucous membranes are dry.) Neck: Non-tender, Full range of motion, Normal Trachea alignment, Normal inspection (No cervical lymphadenopathy. No supraclavicular lymphadenopathy.), No Masses palpable, Supple Lymphatics: Normal Respiratory: Normal - CTA, Diminished Cardiovascular: Regular rate and rhythm (No bradycardia or tachycardia), Normal S1, No Gallops,Rubs/Murmurs, Normal S2, Good Pedal Pulses (DP pulses 2+ bilaterally) GI: Normal bowel sounds (normal active sounds), Soft (non-distended), Non tender , No hepatospenomegaly, No masses Extremities/Musculoskeletal: Normal pulses, Edema Skin: Warm,Dry and Intact, No rashes, No significant lesion Neurological: Strength at 5/5 X4 ext (Motor 5/5 throughout.), Normal tone, Cranial nerves 3-12 NL ( 2-12 grossly intact.) Psych/Mental Status: Agitated, Confused Lab/DI/Studies Reviewed: Abnormal Lab Results 10/21/16 10/22/16 10/22/16 21:00 05:46 06:25 RBC 4.18 L MCHC 32.8 L Plt Count 95 L MPV 12.6 H Neut % (Auto) 85.2 H Lymph % (Auto) 9.5 L Absolute Neuts (auto) 8.50 H Sodium Potassium Carbon Dioxide Anion Gap BUN Creatinine Estimated GFR (MDRD) Glucose POC Capillary Glucose 226 H 263 H Calcium Magnesium 10/22/16 10/22/16 10/22/16 06:25 11:28 16:26 RBC MCHC Plt Count MPV Neut % (Auto) Lymph % (Auto) Absolute Neuts (auto) Sodium 136 L Potassium 3.2 L Carbon Dioxide 19 L Anion Gap 18 H BUN 26 H Creatinine 1.30 H D Estimated GFR (MDRD) 39 L Glucose 271 H POC Capillary Glucose 201 H 220 H Calcium 7.3 L Magnesium 1.20 L - Assessment (1) Hypernatremia Acute E87.0 - HYPEROSMOLALITY AND HYPERNATREMIA Comment/Plan: Sodium back to normal will decrease discontinue IV fluid (2) Acute metabolic encephalopathy Acute G93.41 - METABOLIC ENCEPHALOPATHY Comment/Plan: Patient remains somewhat confused today will continue to monitor. She is also minimally responsive but this is apparently sometimes her baseline. (3) Diastolic CHF Chronic I50.30 - UNSPECIFIED DIASTOLIC (CONGESTIVE) HEART FAILURE Qualifiers: Congestive heart failure chronicity: chronic Qualified Code(s): I50.32 - Chronic diastolic (congestive) heart failure Comment/Plan: Diastolic dysfunction noted on echocardiogram with normal ejection fraction (4) Dehydration Acute E86.0 - DEHYDRATION Comment/Plan: Continue rehydration gently with half-normal saline at 100 milliliters/hour (5) Hyperglycemia Acute R73.9 - HYPERGLYCEMIA, UNSPECIFIED Comment/Plan: Glucoses improving slightly with hydration. Patient did have several low blood glucoses after receiving higher doses of insulin. Will cut back to low-dose sliding-scale coverage. (6) DM complication NOS type II, uncontrolled Acute E11.8 - TYPE 2 DIABETES MELLITUS WITH UNSPECIFIED COMPLICATIONS; E11.65 - TYPE 2 DIABETES MELLITUS WITH HYPERGLYCEMIA Qualifiers: Diabetes mellitus correction insulin use: without adjunct faculty for medical terminology use Qualified Code(s): E11.8 - Type 2 diabetes mellitus with unspecified complications; E11.65 - Type 2 diabetes mellitus with hyperglycemia Comment/Plan: Glucoses well controlled and below 200. (7) Hypertension Chronic I10 - ESSENTIAL (PRIMARY) HYPERTENSION Qualifiers: Hypertension type: essential hypertension Qualified Code(s): I10 - Essential (primary) hypertension Comment/Plan: Monitor BP closely. Continue home medications, except hold BOBBY/ ARB and diuretics. May need to add other meds or titrate doses up. (8) Acute kidney injury Resolved N17.9 - ACUTE KIDNEY FAILURE, UNSPECIFIED Comment/Plan: Renal function back to normal. (9) UTI (urinary tract infection) Ruled-out N39.0 - URINARY TRACT INFECTION, SITE NOT SPECIFIED Qualifiers: Urinary tract infection type: acute cystitis Hematuria presence: with hematuria Qualified Code(s): N30.01 - Acute cystitis with hematuria Comment/Plan: Urine culture negative. Continue to monitor closely. In today's events a new culture has been sent peer (10) Hypomagnesemia Acute E83.42 - HYPOMAGNESEMIA Comment/Plan: Replete IV and p.o. (11) Hypokalemia Acute E87.6 - HYPOKALEMIA Comment/Plan: Replete IV and p.o. - Plan Hypernatremia is resolved plan discharge in a.m. Disposition Plan: [facility]. Case Care Discussed with: Patient, Nursing Staff Education/Counseling Given To: Patient Education/Counseling Given Regarding: Diagnosis, Treatment, Prognosis Total Time: 45 minutes Critical Care: No Couseling Time (>50% in counseling/coordination): No
[2016-10-22] MEDS: ENOXAPARIN 30 MG/0.3 ML PFS SQ SCH (17:32)
[2016-10-22] MEDS: QUETIAPINE FUMARATE 25 MG TAB PO SCH (20:51)
[2016-10-22] MEDS: ONDANSETRON HCL 4 MG/2 ML VIAL IV PRN (21:52)
[2016-10-23] MEDS: Albuterol/Ipratropium Neb 3 ML NEB NEB SCH ×3 (01:20→14:12)
[2016-10-23] MEDS: PIPERACILLIN AND TAZOBACTAM 3.375 GM in D5W 100 ML IV SCH ×3 (04:53→16:30)
[2016-10-23] MEDS: SODIUM CHLORIDE 0.9% 3 ML FLUSH FLUSH SCH (04:53)
[2016-10-23] MEDS: METOCLOPRAMIDE 10 MG/2 ML VIAL IV PRN (05:17)
[2016-10-23] MEDS: REGULAR INSULIN 100 UNITS/ML - 3 ML VIAL SQ SCH ×2 (06:16→11:48)
[2016-10-23 07:07] LABS: AUTOMATED BASOPHIL 0.2 % (0-2); AUTOMATED EOSINOPHIL 0.4 % (0-5); AUTOMATED LYMPH 9.7 % (17-44); AUTOMATED MONOCYTE 5.2 % (3-10); AUTOMATED NEUTROPHIL 84.5 % (45-76); MPV 12.8 fL (7.4-10.4)
[2016-10-23 07:20] LABS: BLOOD UREA NITROGEN 23 MG/DL (7-17); CALCIUM 7.2 MG/DL (8.4-10.2); CALCULATED OSMOLALITY 268 MOs/Kg (270-290); CHLORIDE 103 mEq/L (98-107); GLUCOSE 143 mg/dL (70-99); SODIUM LEVEL 136 mEq/L (137-146)
[2016-10-23] MEDS: METOPROLOL TARTRATE 25 MG TAB PO SCH (09:32)
[2016-10-23] MEDS: POTASSIUM CHLORIDE 20 MEQ TAB PO SCH ×2 (09:38→12:24)
[2016-10-23] MEDS: MAGNESIUM OXIDE 400 MG TAB PO SCH ×2 (09:38→12:24)
--- NOTE | 2016-10-23 13:28 | PCM.DCS92 ---
- Final/Secondary Discharge Diagnosis (1) Hypernatremia Resolved E87.0 - HYPEROSMOLALITY AND HYPERNATREMIA Present on Admission: Yes Comment: Sodium back to normal will decrease discontinue IV fluid (2) Acute metabolic encephalopathy Acute G93.41 - METABOLIC ENCEPHALOPATHY Present on Admission: Yes Comment: Patient remains somewhat confused today will continue to monitor. She is also minimally responsive but this is apparently sometimes her baseline. (3) Diastolic CHF Chronic I50.30 - UNSPECIFIED DIASTOLIC (CONGESTIVE) HEART FAILURE Present on Admission: Yes chronic I50.32 - Chronic diastolic (congestive) heart failure Comment: Diastolic dysfunction noted on echocardiogram with normal ejection fraction (4) DM complication NOS type II, uncontrolled Chronic E11.8 - TYPE 2 DIABETES MELLITUS WITH UNSPECIFIED COMPLICATIONS; E11.65 - TYPE 2 DIABETES MELLITUS WITH HYPERGLYCEMIA Present on Admission: Yes without buttermaker continuous churn use E11.8 - Type 2 diabetes mellitus with unspecified complications; E11.65 - Type 2 diabetes mellitus with hyperglycemia Comment: Glucoses well controlled and below 200. (5) Hypertension Chronic I10 - ESSENTIAL (PRIMARY) HYPERTENSION Present on Admission: Yes essential hypertension I10 - Essential (primary) hypertension Comment: Monitor BP closely. Continue home medications, except hold BOBBY/ARB and diuretics. May need to add other meds or titrate doses up. (6) Hypomagnesemia Acute E83.42 - HYPOMAGNESEMIA Comment: Replete IV and p.o. (7) Hypokalemia Acute E87.6 - HYPOKALEMIA Comment: Replete IV and p.o. (8) Dehydration Resolved E86.0 - DEHYDRATION Present on Admission: Yes Comment: Continue rehydration gently with half-normal saline at 100 milliliters/ hour (9) Hyperglycemia Resolved R73.9 - HYPERGLYCEMIA, UNSPECIFIED Present on Admission: Yes Comment: Glucoses improving slightly with hydration. Patient did have several low blood glucoses after receiving higher doses of insulin. Will cut back to low-dose sliding-scale coverage. (10) Acute kidney injury Resolved N17.9 - ACUTE KIDNEY FAILURE, UNSPECIFIED Present on Admission: Yes Comment: Renal function back to normal. (11) UTI (urinary tract infection) Ruled-out N39.0 - URINARY TRACT INFECTION, SITE NOT SPECIFIED Present on Admission: Yes acute cystitis with hematuria N30.01 - Acute cystitis with hematuria Comment: Urine culture negative. Continue to monitor closely. In today's events a new culture has been sent peer Discharge Disposition: Assisted Living Facility (with PT) Discharge Condition: Improved Cognitive Discharge Status: Cognitive Deficits Impact judgement, impair ability to safely navigate Fuctional Discharge Status: Total Assistance Required, Ambulatory Dysfunction Physician Follow up/Referrals: Mushtaq Mejia MD [Ambulatory] - Two Weeks Home Medications / New Prescriptions: New POTASSIUM CHLORIDE Tablet [K-DUR 20 mEq Tablet*] 20 meq PO TIDWM #90 tab.er.prt Magnesium Oxide [Mag-Ox] 400 mg PO TIDWM #90 tablet Continue Loperamide HCl [Imodium A-D] 1 tab PO Q3H PRN PRN Reason: Diarrhea Albuterol/Ipratropium Neb [Duoneb] 3 ml NEB Q6H PRN PRN Reason: Shortness Of Breath Guaifenesin [Robitussin] 10 ml PO Q4H PRN PRN Reason: Cough Acetaminophen [Tylenol] 650 mg PO Q6H PRN PRN Reason: PAIN OR FEVER Polyethylene Glycol 3350 [Miralax] 17 gm PO Q48H Metoprolol Tartrate 12.5 mg PO BID Lisinopril 5 mg PO DAILY Acetaminophen [Mapap] 1,000 mg PO Q6H PRN PRN Reason: PAIN OR FEVER Lorazepam 0.25 mg PO .2XWEEK #20 tablet Quetiapine Fumarate [Seroquel] 25 mg PO QHS #20 tablet Discharge Home Medication List Acetaminophen [Mapap] 1,000 mg PO Q6H PRN 10/19/16 [History Confirmed 10/19/16] Acetaminophen [Tylenol] 650 mg PO Q6H PRN 10/19/16 [History Confirmed 10/19/16] Albuterol/Ipratropium Neb [Duoneb] 3 ml NEB Q6H PRN 10/19/16 [History Confirmed 10/19/16] Guaifenesin [Robitussin] 10 ml PO Q4H PRN 10/19/16 [History Confirmed 10/19/16] Lisinopril 5 mg PO DAILY 10/19/16 [History Confirmed 10/19/16] Loperamide HCl [Imodium A-D] 1 tab PO Q3H PRN 10/19/16 [History Confirmed ] Metoprolol Tartrate 12.5 mg PO BID 10/19/16 [History Confirmed 10/19/16] Polyethylene Glycol 3350 [Miralax] 17 gm PO Q48H 10/19/16 [History Confirmed 01/28] Lorazepam 0.25 mg PO .2XWEEK #20 tablet 10/23/16 [Rx] Magnesium Oxide [Mag-Ox] 400 mg PO TIDWM #90 tablet 10/23/16 [Rx] POTASSIUM CHLORIDE Tablet [K-DUR 20 mEq Tablet*] 20 meq PO TIDWM #90 tab.er.prt 10/23/16 [Rx] Quetiapine Fumarate [Seroquel] 25 mg PO QHS #20 tablet 10/23/16 [Rx] New Discharge Medications (Rx) Lorazepam 0.25 mg PO .2XWEEK #20 tablet 10/23/16 [Rx] Magnesium Oxide [Mag-Ox] 400 mg PO TIDWM #90 tablet 10/23/16 [Rx] POTASSIUM CHLORIDE Tablet [K-DUR 20 mEq Tablet*] 20 meq PO TIDWM #90 tab.er.prt 10/23/16 [Rx] Quetiapine Fumarate [Seroquel] 25 mg PO QHS #20 tablet 10/23/16 [Rx] O2 Device: Room Air Diet at Discharge: As Tolerated, Cardiac, Low Salt Activity: No Restrictions, As Tolerated Call Office For: Worsening Symptoms, Fever over 100.5, Weight Gain (see below), Pain Uncontrolled By Meds - DC Summary Notes Hospital Course Note:: Discharge summary on patient named CHERIE LY admitted to [facility] on 10/19/16 by Hansa Dan MD. Date of discharge is []. 86-year-old female presented to our facility with obtundation. She was found to have severe hypernatremia. She was admitted into the hospital initially thought to also have a urinary tract infection. This was year old out by urine culture. Her hypernatremia was treated with administration of half-normal saline. Patient's renal function improved her sodium levels have returned to normal and she is now stable for discharge back to assisted living facility. Please note she has low potassium and low magnesium in these have been prescribed for her at discharge. She will require a BMP weekly for at least 3 weeks. She will see Dr. Mejia in follow-up in 2 weeks. Patient has reached maximal benefit of hospitalization. She is stable for discharge home. Total Time: 45 min - Physical Exam Vital Signs: Last Vital Signs Temp 98.3 F 10/23/16 06:00 Pulse 105 10/23/16 09:31 Resp 18 10/23/16 06:00 BP 107/52 L 10/23/16 09:31 Pulse Ox 93 10/23/16 08:29 Oxygen Pulse Oxygen Saturation 93 O2 Device Room Air Oxygen Flow Rate 3 Fraction of Inspired Oxygen ( FIO2) Constitutional: Alert, Confused, Distress, Other (frail elderly white female, awake but will not converse, slightly resistant to exam, but not combative) - HEENT Head: Normal Eye: Normal (PERRL:EOMI) Oropharynx: Membranes Dry. negative: Drooling, Exudate, Red Tympanic Membrane: Dull ENT EAC: Cerumen Nose: negative: Bleeding, Congestion, Discharge - Respiratory/Cardiovascular Respiratory: Normal - CTA, Diminished - GI Auscultation: Normal Palpation: Normal (soft, nontender, nondistended, no mass, no scar,). negative : Enlarged liver, Enlarged spleen, Fluid Wave, Mass Tenderness: Non tender Antonio's Sign: Negative Rectal Exam: Deferred - Musculoskeletal Back: Normal Extremities: Pedal Pulse (normal), Radial Pulse (normal), Other (degenerative joint disease). negative: Calf Tenderness, Clubbing, Cyanosis, Edema - Integumentary Lymphatics: Normal - Neurologic Memory Impaired: Unable to Test Motor Function: Normal (Motor 5/5 throughout.Normal tone, Pulses 2+ No cyanosis or edema, FROM) Cranial Nerve: Normal (CN II-XII intact sensation, strength 5/5) Cerebellar: Unable to Test Mood Description: Uncooperative Thought: Other (non-communicative) - Other Exam Other Exam Findings: Laboratory Results - last 24 hr 10/22/16 10/22/16 10/23/16 16:26 20:20 05:20 WBC 7.6 RBC 3.93 L Hgb 11.3 L Hct 33.7 L MCV 86 MCH 28.6 MCHC 33.3 RDW 12.9 Plt Count 88 L MPV 12.8 H Neut % (Auto) 84.5 H Lymph % (Auto) 9.7 L Foster % (Auto) 5.2 Eos % (Auto) 0.4 Baso % (Auto) 0.2 Absolute Neuts (auto) 6.38 Absolute Lymphs (auto) 0.68 Sodium Potassium Chloride Carbon Dioxide Anion Gap BUN Creatinine Estimated GFR (MDRD) Glucose POC Capillary Glucose 220 H 251 H Calculated Osmolality Calcium Magnesium 10/23/16 10/23/16 10/23/16 05:20 06:07 11:21 WBC RBC Hgb Hct MCV MCH MCHC RDW Plt Count MPV Neut % (Auto) Lymph % (Auto) Foster % (Auto) Eos % (Auto) Baso % (Auto) Absolute Neuts (auto) Absolute Lymphs (auto) Sodium 136 L Potassium 3.2 L Chloride 103 Carbon Dioxide 20 L Anion Gap 16 BUN 23 H Creatinine 1.00 Estimated GFR (MDRD) 53 L Glucose 143 H POC Capillary Glucose 151 H 191 H Calculated Osmolality 268 L Calcium 7.2 L Magnesium 2.50 H
[2016-10-23 14:06] VITALS: BP 130/60; PULSE 94; TEMP 99
== END 2016-10-23 16:07 | DRG 682 ==
LOC: ED 08:16 → MPS3 10:27
PROVIDERS: ADMIT Family Medicine; ATTEND Hospitalist
PROC: 4A033R1 Measurement of Arterial Saturation, Peripheral, Percutaneous Approach (ICD-10-PCS; principal; 2016-10-21)
DX: N17.9 Acute kidney failure, unspecified (principal); G93.41 Metabolic encephalopathy; E87.0 Hyperosmolality and hypernatremia; I11.0 Hypertensive heart disease with heart failure; I50.32 Chronic diastolic (congestive) heart failure; Z23 Encounter for immunization; E11.65 Type 2 diabetes mellitus with hyperglycemia; E83.42 Hypomagnesemia; E87.6 Hypokalemia; E86.0 Dehydration; Z66 Do not resuscitate; K21.9 Gastro-esophageal reflux disease without esophagitis; M19.90 Unspecified osteoarthritis, unspecified site; F03.90 Unspecified dementia, unspecified severity, without behavioral disturbance, psychotic disturbance, mood disturbance, and anxiety; F41.9 Anxiety disorder, unspecified; Z90.49 Acquired absence of other specified parts of digestive tract
CPT/HCPCS: 36415; 36600; 70450; 71010; 74022; 80048; 80053; 81001; 82043; 82803; 82947; 82962; 83036; 83735; 83880; 84484; 85025; 85610; 85730; 87040; 87077; 87086; 90471; 90732; 93005; 94640; 96361; 96365; 96372; 97161; 99284; G0237; J0360; J0696; J1650; J1940; J2405; J2543; J2765; J3475; J3480; J3490; J7060; J7620